=== PATIENT | male | born 1970 | race Caucasian/White ===

== ENCOUNTER 2018-03-19 09:11 | Outpatient (CLI) | payer BC ==
--- NOTE | 2018-03-19 11:13 | ULT ---
RIGHT BREAST ULTRASOUND: HISTORY: A 47-year-old male who presents with some right breast retroareolar tenderness. FINDINGS: There is very slight asymmetry of the subareolar region of the right breast compared to the left on d iagnostic mammogram. No solid or cystic mass. Evidence for very minimal right-sided gynecomastia. No solid or cystic mass. No evidence of maligna ncy. If the patient develops any new palpable abnormality that does not resolve, a short-term followup ult rasound examination and mammogram should be considered. POS: OFF
== END 2018-03-19 09:12 | disposition home or self-care (01) ==
LOC: BICMAMMO 09:11
PROVIDERS: ATTEND Surgery
DX: N63.10 Unspecified lump in the right breast, unspecified quadrant (principal)
CPT/HCPCS: 77066; G0279